=== PATIENT | male | born 1995 | race African-American/Black ===

== ENCOUNTER 2017-05-04 16:48 | Emergency (ER) | payer OTHER ==
[~2017-05-04] VITALS: Wt 58.2 kg
[2017-05-04] MEDS ORDERED: CEFTRIAXONE 250 MG INJ IM ONE (19:00)
[2017-05-04] MEDS ORDERED: AZITHROMYCIN 250 MG TAB PO ONE (19:00)
[2017-05-04 19:20] LABS: URINE BLOOD (Dip) POC Negative (NEGATIVE)
[2017-05-04] MEDS ORDERED: IBUP-1542 PO (19:36)
--- NOTE | 2017-05-04 19:41 | ERD ---
ER Documentation Chief Complaint Chief Complaint PAIN/SORENESS ON PENILE AREA, NO RASH, NO SWELLING/REDNESS HPI This is a 21-year-old male presents to the ER with pain to the shaft of his penis that started yesterday. He denies any rashes, discharge, redness or swelling of the area. Complains of urinary frequency and dysuria. He denies any hematuria. He denies any lower back pain or flank pain. He is currently sexually active and states he was recently tested for STDs, which came up negative. Patient states he does use condoms. He is HIV positive and states that he is compliant with all his medication. ROS 12 point review of systems was done, all negative except per HPI. Medications Home Meds Active Scripts Ibuprofen* (Motrin*) 600 Mg Tab, 600 MG PO Q6, #30 TAB Prov:KELLY MCDONALD Francisco Javier 05/04/17 Allergies Allergies: Coded Allergies: No Known Allergy (Unverified , 04/02/16) PMhx/Soc Medical and Surgical Hx: pt denies Medical Hx History of Surgery: No Anesthesia Reaction: No Hx Neurological Disorder: No Hx Respiratory Disorders: No Hx Cardiac Disorders: No Hx Psychiatric Problems: Yes (anxiety) Hx Miscellaneous Medical Probl: Yes (HIV positive on meds) Hx Alcohol Use: No Hx Substance Use: No Hx Tobacco Use: No Smoking Status: Never smoker Physical Exam Vitals Vital Signs Date Time Temp Pulse Resp B/P Pulse Ox O2 Delivery O2 Flow Rate FiO2 05/04/17 16:53 98.6 75 18 117/82 100 Physical Exam GENERAL: The patient is well developed and appropriate for usual state of health , in no apparent distress. HEENT: Atraumatic. CHEST: Clear to auscultation bilaterally. There are no rales, wheezes or rhonchi. HEART: Regular rate and rhythm. No murmurs, clicks, rubs or gallops. : patient is ttp to the shaft of the penis, no discharge, sores. no testicular pain or swelling NEURO: Alert and oriented. Results 24 hrs Laboratory Tests Test 05/04/17 19:19 Bedside Urine pH (LAB) 7.0 Bedside Urine Protein (LAB) Negative Bedside Urine Glucose (UA) Negative Bedside Urine Ketones (LAB) Negative Bedside Urine Blood Negative Bedside Urine Nitrite (LAB) Negative Bedside Urine Leukocyte Esterase (L Negative Current Medications Medications (Trade) Dose Ordered Sig/Abdi Route PRN Reason Start Time Stop Time Status Last Admin Dose Admin Ceftriaxone Sodium (Rocephin) 250 mg ONCE ONCE IM 05/04/17 19:00 05/04/17 19:01 DC 05/04/17 19:26 Azithromycin (Zithromax) 1,000 mg ONCE ONCE PO 05/04/17 19:00 05/04/17 19:01 DC 05/04/17 19:26 Procedures/MDM This 21-year-old male presents to the ER with pain to the shaft of his penis. He also complained of urinary frequency and dysuria, urinalysis was negative for urinary tract infection his urine will be sent for gonorrhea and chlamydia. He was treated prophylactically with azithromycin and Rocephin without any complications in the ER. Patient denies any testicular pain I doubt testicular torsion, or epididymitis. And needs follow-up with his primary care doctor within 1-2 days return to ER sooner if symptoms worsen. Medical decision making shared with the patient he understands and agrees with plan. Departure Diagnosis: Primary Impression: Penile pain Condition: Stable Patient Instructions: If You Think You Have an STD Additional Instructions: Call your primary care doctor TOMORROW for an appointment during the next 1-2 days.See the doctor sooner or return here if your condition worsens before your appointment time. KELLY MCDONALD May 04, 2017 19:41
== END 2017-05-04 19:48 | disposition home or self-care (01) ==
LOC: FTE 16:48
DX: N48.89 Other specified disorders of penis (principal)
CPT/HCPCS: 81003; 87591; J0696; Z7610; 96372